=== PATIENT | female | born 1995 | race Caucasian/White ===

== ENCOUNTER 2017-03-31 11:11 | Observation (INO) ==
[2017-03-31] MEDS ORDERED: MORPHINE 2 MG/1 ML SYRINGE IV STA (12:30)
[2017-03-31] MEDS ORDERED: SODIUM CHLORIDE 0.9% 1,000 ML IV STA (12:30)
[2017-03-31] MEDS ORDERED: ONDANSETRON ODT 4 MG TABLET PO STA (12:30)
--- NOTE | 2017-03-31 12:32 | Emergency Department Note ---
Arrival - Arrival Chief Complaint: Nausea/Vomiting/Diarrhea Stated Complaint: vomiting X 4 days ED Nursing Triage Note: Pt c/o nausea, vomiting, MITCHELL, and abd/chest pain. Mode of Arrival: Ambulatory Limitations: No Limitations Source: Patient, RN Notes Reviewed Time Seen by Provider: 03/31/17 11:44 - History of Present Illness HPI Narrative: - History of Present Illness 22-year-old white female presents to ED with: MD Complaint: abdominal pain, nausea, vomiting,, migraine, chest pain Onset (ago): 4 days Fever: no Related symptoms: Cramping in hands, numbness in arms and legs PCP: none PMHx: Migraines Date of Last Menstrual Period: started yesterday Allergies/Adverse Reactions: Allergies Allergy/AdvReac Type Severity Reaction Status Date / Time azithromycin [From Zithromax] Allergy RASH Verified 03/31/17 11:23 Home Medications: Home Medications Medication Instructions Recorded Confirmed Type No Known Home Medications [No 03/31/17 03/31/17 History Known Home Medications] Review of System - Review of System 12 point system: reviewed and no additional remarkable complaints except as stated - Review of System Cardiovascular: Present: as per HPI, chest pain Gastrointestinal: Present: as per HPI, abdominal pain, nausea, vomiting. Absent : melena, hematochezia Medical,Surgical,& Family Hx - Medical History Neurology: History of: Migraine - Social History Smoking Status: Current every day smoker Exam Physical Examination: - General General appearance: alert, in no apparent distress - HEENT Present: atraumatic, normocephalic, normal inspection, PERRL, EOMI, mucous membranes dry - Neck Neck exam: Present: normal inspection, full ROM -Chest Present: symmetrical chest rise, reproducible chest pain - Respiratory Respiratory exam: Present: normal lung sounds bilaterally - Cardiovascular Cardiovascular exam: Present: regular rate, normal rhythm, normal heart sounds - Abdominal Exam Abdominal exam: Present: soft, tenderness: Yes, generalized, mild to moderate, normal bowel sounds. Absent: distention, guarding, - Extremities Exam Extremities exam: Present: normal inspection, full ROM. Absent: pedal edema, joint swelling, calf tenderness - Back Exam Back exam: Present: normal inspection, no CVA tenderness - Neurological Exam Neurological exam: Present: alert, oriented X3, no neuorosensory deficits - Psychiatric Psychiatric exam: Present: normal affect, normal mood - Skin Skin exam: Present: warm, dry, intact Vital Signs: Vital Signs Temperature 98.0 F 03/31/17 20:28 Pulse Rate 89 03/31/17 20:28 Respiratory Rate 20 03/31/17 20:28 Blood Pressure 111/65 03/31/17 20:28 O2 Sat by Pulse Oximetry 98 03/31/17 20:28 - Chest Chest inspection: Present: normal inspection, symmetric chest wall rise, tenderness Course - Consultations Time: 14:00 (Hospitalist service notified of pt presence and status.) Time: 14:15 (Hospitalist service here to evaluate patient. Will admit patient.) Results - Labs CBC & BMP: 03/31/17 12:49 03/31/17 12:49 Lab Results: I have reviewed the patients labs Labs: Laboratory Tests 03/31/17 11:35 Urine Color Yellow Urine Appearance Slightly hazy Urine pH 6.0 Ur Specific [place] 1.029 Urine Protein 100 Urine Glucose (UA) Negative Urine Ketones 5 Urine Blood Negative Urine Nitrate Negative Urine Bilirubin Negative Urine Urobilinogen 2.0 H Urine Leukocytes Negative Urine RBC 3 Urine WBC 6 Ur Squamous Epith Cells Occasional Amorphous Crystals Occasional Urine Bacteria Occasional Urine Mucus Moderate Ur Culture Indicated? Results to follow Urine Test Negative - EKG EKG results: interpreted by JANIYA BLUM - Impressions No STEMI. - Diagnostic Findings Procedure: Abdominal x-ray: report reviewed by me (Negative bowel gas pattern.) Disposition Clinical Impression: Nausea and vomiting, Hypokalemia, Abdominal pain Case discussed with: patient Disposition: Still a Patient Condition: Guarded Time of Disposition: 14:30
[2017-03-31 12:48] LABS: Amorphous Crystals,Urine Occasional /HPF (Few); Bacteria,Urine Occasional /HPF (Few); Bilirubin,Urine Negative (Negative); Blood, Urine Negative (Negative); Glucose,Urine (UA) Negative (Negative); Ketones,Urine 5 mg/dL (Negative); Mucus,Urine Moderate /LPF (Occasional); Nitrite,Urine Negative (Negative); Protein,Urine 100 MG/DL; RBC,Urine 3 /HPF (0-4); Squamous Epithelial Cell,Urine Occasional /HPF (0-10); Urine Specific Gravity 1.029 (1.001-1.035); WBC,Urine 6 /HPF (0-6)
[2017-03-31 12:49] LABS: Apearance,Urine Slightly Hazy (Clear); Urine Color Yellow (Yellow)
[2017-03-31] MEDS ORDERED: MORPHINE 2 MG/1 ML SYRINGE ONE (12:55)
[2017-03-31] MEDS ORDERED: ONDANSETRON ODT 4 MG TABLET PO ONE (12:55)
[2017-03-31 13:06] LABS: Basophils % 0.2 % (0.0-0.8); Hematocrit 45.3 VOL% (35.7-47.0); Hemoglobin 16.2 GM/DL (12.0-16.0); Immature Granulocytes % 0.7 %; Immature Granulocytes Absolute 0.11 #; Lymphocytes # 2.6 10*3/uL (1.4-4.0); Lymphocytes % 15.7 % (21.3-54.2); Mean Corpuscular HGB Conc 35.8 GM/DL (32-36); Mean Corpuscular Hemoglobin 32 PG (27-34); Mean Corpuscular Volume 90.6 FL (87-102); Mean Platelet Volume 11.5 FL (9.6-12.0); Monocytes # 1.5 10*3/uL (0.11-0.8); Monocytes % 9.4 % (1.7-12.7); Platelet Count 276 T/CUMM (130-400); Red Cell Distribution Width 12.3 % (9.3-17.3); White Blood Count 16.2 T/CUMM (4-12)
[2017-03-31 13:28] LABS: Albumin 5.1 G/DL (3.4-5.0); Bilirubin,Total 1.3 MG/DL (0.2-1.0); Calcium 9.8 MG/DL (8.5-10.1); Osmolality,Calculated 281.8 MOS/KG (273-304); Potassium 2.7 MMOL/L (3.5-5.1); Total Protein 8.5 G/DL (6.4-8.3)
--- NOTE | 2017-03-31 13:28 | EKG Report ---
Stationary ECG Study [facility] Test Date: 03/31/2017 12:36:35 PM Pat Name: ALBINA SANON Department: Room: Gender: F Global [employer]: : 1995 Requested by: Julieth Pfeiffer Order Number: [id number] Reading MD: BOUBACAR ARCE Intervals [place] Rate: 67 P: 64 AL: 117 QRS: 94 QRSD: 95 T: 48 QT: 406 QTc: 422 Interpretive Statements SINUS RHYTHM WITH SHORT AL INTERVAL RIGHT AXIS DEVIATION MODERATE T-WAVE ABNORMALITY, CONSIDER INFERIOR ISCHEMIA Electronically Signed On 04-01-17 07:17:32 CDT by BOUBACAR ARCE [email or web address]
--- NOTE | 2017-03-31 13:45 | XRay Report ---
XR abdomen 2V Indication: Nausea, vomiting and diarrhea. Abdomen 2 views: No small bowel dilatation. Normal amount of stool and gas projects over the colon, without dilatation. No evidence of free air. No abnormal calcifications or masses. Impression: Negative bowel gas pattern. PROCEDURE INTERPRETED AT [facility] DEPARTMENT OF RADIOLOGY Final Report Signed by: Jeffrey Gracia M.D.
[2017-03-31] MEDS ORDERED: ACETAMINOPHEN 325 MG TABLET PO PRN ×2 (14:37)
[2017-03-31] MEDS ORDERED: guaiFENesin/DM ER 600-30 MG TABLET PO PRN (14:37)
[2017-03-31] MEDS ORDERED: DOCUSATE SODIUM 100 MG CAPSULE PO PRN (14:37)
[2017-03-31] MEDS ORDERED: PROMETHAZINE 25 MG/1 ML VIAL IM PRN (14:37)
[2017-03-31] MEDS ORDERED: diphenhydrAMINE CAP 25 MG CAPSULE PO PRN (14:37)
[2017-03-31] MEDS ORDERED: SODIUM CHLORIDE 0.9% 1,000 ML IV ONE (14:44)
[2017-03-31] MEDS ORDERED: IBUPROFEN 800 MG TABLET PO PRN (14:46)
--- NOTE | 2017-03-31 14:55 | Hospitalist History & Physical ---
Assessment and Plan - Time spent with patient Time spent with patient: Greater than 30 minutes (1) Nausea and vomiting Status: Acute Assessment and plan: Ms. Penn is a 22-year-old white female with history of migraines admitted by the hospitalist service with 5 day history of nausea and vomiting with hypokalemia and migraines. Patient will be admitted to Dr. Delgado service, given a bolus of normal saline and maintenance fluids with potassium. We will start her on some nausea medicine, and a clear liquid diet. Can advance her diet as she tolerates. She will be given some Motrin as needed for her migraines. Will check an abdominal ultrasound of the right upper quadrant due to her elevated T bili with nausea and vomiting to rule out gallbladder disease. If it is her gallbladder will go ahead and start her on some antibiotics. She is afebrile at this time so we will hold off on antibiotics until results of the ultrasound are back. Recheck labs in the morning. Blood cultures and UA have been ordered. Dr. Solano will see and examine patient and further recommendations to follow. Current Visit: Yes (2) Dehydration Status: Acute Current Visit: Yes (3) Hypokalemia Status: Acute Current Visit: Yes (4) Migraines Status: Acute Current Visit: Yes (5) Right upper quadrant abdominal pain Status: Acute Current Visit: Yes History of Present Illness Chief complaint: Nausea and vomiting 5 days History of present illness: Ms. Mcgraw is a 22 year old female with with history of migraines presenting to [facility] with a 5 day history of nausea and vomiting. Patient states she ate a chicken sandwich at [employer] on Saturday and then several hours later she developed a migraine and then nausea followed by vomiting. Patient states she has vomited 5-10 times a day since Saturday. She can keep down ice chips and applesauce but everything else comes back up. She denies diarrhea, constipation, shortness of breath, or lower extremity edema. She states the migraines have been off and on since the vomiting episodes have started and they are associated with vision changes. She states she usually just takes some ibuprofen and lays in the dark until it goes away. Patient is weak and dizzy and she is complaining of chest pain. Upon exam she has chelosis and dry mucous membranes. She is tender in her right upper quadrant but her lungs are clear and heart regular rate and rhythm with no murmurs heard. She is afebrile vital signs are stable but she does have an elevated white count of 16. Her potassium is low at 2.7 and her BUN is elevated. She does have a total bilirubin elevation of 1.3 with normal AST and ALT. After discussion with Kimi Gonzalez NP in the ED and Dr. Solano the admitting hospitalist, it was agreed patient will be admitted for further evaluation and treatment. Home Medications Medication Instructions Recorded Confirmed Type No Known Home Medications [No 03/31/17 03/31/17 History Known Home Medications] Allergies Allergy/AdvReac Type Severity Reaction Status Date / Time azithromycin [From Zithromax] Allergy RASH Verified 03/31/17 11:23 Medical,Surgical,& Family Hx - Medical History Neurology: History of: Migraine - Surgical History Reproductive Surgeries: Patient denies;: Gynecologic Surgery Orthopedic Surgeries: Patient denies;: Orthopedic Surgery - Family History Family History: Reports;: Family Hypertension - Social History Smoking Status: Current every day smoker Have you smoked in the last 12 months: Yes Frequency of Alcohol Use: Occasionally Type of Drug Use: Marijuana Marital Status: Single Lives With:: Parent Functional capacity: independent ambulation Review of systems: A complete 10 system review of systems was obtained and pertinent positives and negatives per HPI Exam - Constitutional Vitals: Period Temp Pulse Resp BP Sys/Hi Pulse Ox Last 24 Hr 98.3 F 89 20 121/89 96 Exam: Constitutional System: No distress. No tremulousness. Head: Normocephalic, atraumatic. Ears, Nose and Throat System: No evidence of Otitis or Mastoiditis. No epistaxis or discharge dry mucous membranes, chelosis Eyes System: Pupils equal, round, and reactive. Extraocular muscles intact. Neck: Supple, without adenopathy, No jugular venous distention. No thyromegaly, neck mass, or prior surgery apparent. Respiratory System: Chest clear to auscultation. Cardiovascular System: Heart with regular rate and rhythm. No murmur. GI System: Abdomen soft, tender to palpation in right upper quadrant and epigastric region. Normo active bowel sounds present. Musculoskeletal System: limbs with no pedal edema. Full distal pulses. Neurological System: No discernable sensory deficit. No aphasia Psychiatric System: Conversation is rational Results - Labs CBC & BMP: 03/31/17 12:49 03/31/17 12:49 Lab Results: I have reviewed the past 24 hour labs - Impressions Her EKG shows a borderline right axis deviation with a moderate T-wave abnormality Quality Measures - VTE Contraindication to Pharmacological VTE Prophylaxis: Clinical assessment deems Pt at low risk, no prophalaxis needed
[2017-03-31] MEDS ORDERED: PANTOPRAZOLE 40 MG TABLET PO SCH (15:00)
--- NOTE | 2017-03-31 16:07 | XRay Report ---
XR chest 2V Indication: Chest pain. Chest 2 views: No comparison. Heart size and mediastinal contour are normal. There is diffuse mild parabronchial thickening present. No focal infiltrates are shown. Pleural spaces are clear. Bones are intact. Impression: Mild airways disease such as bronchitis or viral syndrome. No focal pneumonia. PROCEDURE INTERPRETED AT [facility] DEPARTMENT OF RADIOLOGY Final Report Signed by: Jeffrey Gracia M.D.
[2017-03-31] MEDS: ONDANSETRON 4 MG/2 ML VIAL IV PRN ×2 (16:35→20:28)
--- NOTE | 2017-03-31 16:54 | Ultrasound Report ---
US gallbladder Indication: Right upper quadrant abdominal pain. ULTRASOUND ABDOMEN, limited Comparison: None Findings: Liver: Unremarkable Gallbladder: Unremarkable Common bile duct: 3 mm Pancreas: Unremarkable Right kidney: 9.7 cm length. No mass, cyst, calcification or obstruction Impression: Negative ultrasound the abdomen. PROCEDURE INTERPRETED AT [facility] DEPARTMENT OF RADIOLOGY Final Report Signed by: Jeffrey Gracia M.D.
[2017-03-31] MEDS: SODIUM CHLOR 0.9% KCL 40 MEQ 40 MEQ/1,000 ML BAG IV SCH (17:36)
[2017-03-31] MEDS: PANTOPRAZOLE 40 MG TABLET PO SCH (21:12)
[2017-03-31] MEDS: MORPHINE 2 MG/1 ML SYRINGE IV PRN (22:48)
[2017-04-01] MEDS: SODIUM CHLOR 0.9% KCL 40 MEQ 40 MEQ/1,000 ML BAG IV SCH ×2 (01:44→09:48)
[2017-04-01 05:16] LABS: Basophils % 0.1 % (0.0-0.8); Eosinophils % 0.2 % (0.00-10.9); Hematocrit 33.1 VOL% (35.7-47.0); Hemoglobin 11.3 GM/DL (12.0-16.0); Immature Granulocytes % 0.6 %; Immature Granulocytes Absolute 0.05 #; Lymphocytes # 3.5 10*3/uL (1.4-4.0); Lymphocytes % 41.7 % (21.3-54.2); Mean Corpuscular HGB Conc 34.1 GM/DL (32-36); Mean Corpuscular Hemoglobin 33 PG (27-34); Mean Corpuscular Volume 96.5 FL (87-102); Mean Platelet Volume 11.9 FL (9.6-12.0); Monocytes # 0.7 10*3/uL (0.11-0.8); Monocytes % 8.8 % (1.7-12.7); Neutrophils % 48.6 % (38.7-73.9); Platelet Count 149 T/CUMM (130-400); Red Blood Count 3.43 MC/CUMM (3.8-5.5); Red Cell Distribution Width 12.2 % (9.3-17.3); White Blood Count 8.3 T/CUMM (4-12)
[2017-04-01 05:47] LABS: Albumin 3.1 G/DL (3.4-5.0); Calcium 7.7 MG/DL (8.5-10.1); Magnesium 2.4 MG/DL (1.8-2.4); Potassium 3.9 MMOL/L (3.5-5.1); Total Protein 5.2 G/DL (6.4-8.3)
[2017-04-01] MEDS: ONDANSETRON 4 MG/2 ML VIAL IV PRN (08:50)
[2017-04-01] MEDS: PANTOPRAZOLE 40 MG TABLET PO SCH (08:50)
[2017-04-01] MEDS: MORPHINE 2 MG/1 ML SYRINGE IV PRN (13:15)
--- NOTE | 2017-04-01 14:03 | Discharge Summary ---
Hospital Course - Hospital Course Hospital Course: Ms. Penn is a 22-year-old white female with history of migraines who was admitted on the above admit date with a 5 day history of nausea and vomiting. She was found to be moderately dehydrated with a significant hypokalemia, JOSE and elevated T bili. She is also found to have an elevated white blood cell count. She was admitted and treated for moderate dehydration secondary to intractable nausea and vomiting that was exacerbated by a gastroenteritis and migraine headaches. We replaced her potassium IV with concomitant IV fluids. The following day her electrolytes had all corrected including her white blood cell count. She was not initiated on antibiotics. Right upper quadrant ULTRASOUND was obtained due to an elevated T bili. This returned normal. We treated her with as needed Zofran and for nausea and ibuprofen for headache both of which seem to provide additional relief. She tolerated a breakfast as well as lunch that was advanced to soft without any difficulty. No further episodes of nausea nor vomiting. She did have a mild headache but stated that the ibuprofen that was ordered did relieve that headache. Therefore she has reached maximal benefit of this hospitalization and she is ready for discharge home. Of note, patient states that she has moderate amount of anxiety for which she would like to be seen in an outpatient follow-up with a primary care physician. Diagnosis - Discharge Diagnosis (1) Nausea and vomiting Status: Resolved (2) Dehydration Status: Resolved (3) Hypokalemia Status: Resolved (4) Migraines Status: Chronic (5) Right upper quadrant abdominal pain Status: Resolved Discharge Plan - Discharge Data Disposition: Disch To Home/Self Care Condition at Discharge: Stable Discharge Diet: advance to your usual diet Activity: resume usual activities as tolerated Hygiene: no restrictions Weight Bearing at Discharge: full weight bearing Driving: no restrictions Contact your physician if you experience:: Nausea/Vomiting - Discharge Medications New Ondansetron Tab [Zofran Tab] 4 mg PO Q6H PRN #20 tablet PRN Reason: Nausea/Vomiting Ibuprofen Tab [Motrin Tab] 800 mg PO Q8H PRN #30 tablet PRN Reason: migraine - Follow Up or Referral - Forms/Instructions Exam - Constitutional Vitals: Period Temp Pulse Resp BP Sys/Hi Pulse Ox Last 24 Hr 97.4 F-98.5 F 53-89 18-22 101-117/56-74 97-100 Exam: General: No acute distress. No tremulousness. Head: Normocephalic, atraumatic. Eyes System: Pupils equal, round, and reactive. Extraocular muscles intact. Respiratory System: Chest clear to auscultation. Cardiovascular System: Heart with regular rate and rhythm. No murmur. GI System: Abdomen soft, non-tender to palpation. Normo active bowel sounds present. Neurological System: Grossly intact without sensory deficits. No aphasia Psychiatric System: Conversation is rational Discharge Results Procedures and tests throughout hospitalization: Pending Orders 03/31/17 Urine Culture Routine 03/31/17 21:25 Blood Culture Stat Labs on day of discharge: Labs from last 24 hours 04/01/17 04/01/17 04:15 04:15 WBC 8.3 D RBC 3.43 L D Hgb 11.3 L D Hct 33.1 L MCV 96.5 MCH 33 MCHC 34.1 RDW 12.2 Plt Count 149 D MPV 11.9 Neut % (Auto) 48.6 Lymph % (Auto) 41.7 [place] % (Auto) 8.8 Eos % (Auto) 0.2 Baso % (Auto) 0.1 Neut # (Auto) 4.0 Lymph # (Auto) 3.5 [place] # (Auto) 0.7 Eos # (Auto) 0.0 Baso # (Auto) 0.0 Immature Gran % 0.6 Nucleated RBC % 0.0 Immature Gran # 0.05 Nucleated RBCs # 0.00 Sodium 143 Potassium 3.9 Chloride 107 Carbon Dioxide 27 Anion Gap 12.9 BUN 18 D Creatinine 0.60 GFR Calculation 97 BUN/Creatinine Ratio 30.00 H Glucose 79 Calculated Osmolality 285.0 Calcium 7.7 L D Magnesium 2.4 Total Bilirubin 1.00 AST 14 ALT 14 Alkaline Phosphatase 39 L Total Protein 5.2 L Albumin 3.1 L Globulin 2.1 L Albumin/Globulin Ratio 1.4 Preliminary micro results at discharge 03/31/17 Unknown Urine Culture - Preliminary Urine,Voided No Growth at 12 hours. DS: Provider Date of admission: 03/31/17 14:08 Primary care physician: . No PCP Attending physician on admission: Stephany Solano MD Consults: 03/31/17 15:40 Consult to Dietitian [CONS] Routine Reason for Dietitian: Dietary Consult 04/01/17 13:07 Consult to Physician [CONS] Routine Comment: Consulting Provider: Pat,Bill III. Person Notified: pat Date Notified: 04/01/17 Time Notified: 13:07 Discharging clinician: Stephany Solano MD Expected date of discharge: 04/01/17
[2017-04-01 14:10] VITALS: BP 103/61
--- NOTE | 2017-04-01 14:21 | General Surgery Consult Note ---
Assessment and Plan - Time spent with patient Time spent with patient: Greater than 30 minutes (1) Abdominal pain Status: Acute Assessment and plan: The etiology of her pain is unclear. She has had 2 separate episodes by normal interval. According to her these have coincided with her menstrual period. I do not have a definite explanation for this and I would not expect a SOCIAL SERVICES AIDE source such as endometriosis to cause so much nausea and vomiting. I think it may be helpful to get a GI evaluation. I will consult GI. She does not appear to have an acute surgical abdomen. I will try to get a copy of her CT scan that was done at [place]. If this was normal recently it is probably not worthwhile to repeat it. Current Visit: Yes Qualifiers: Abdominal location: lower abdomen, unspecified Qualified Code(s): R10.30 - Lower abdominal pain, unspecified History of Present Illness Chief complaint: Abdominal pain History of present illness: Ms. Mcgraw is a 22 year old female Who for about 5 days has had lower abdominal pain which is poorly localized. It is moderate in severity. It is been associated with extensive nausea and vomiting. When she presented she reported that she had a right upper quadrant abdominal pain however she states to me that all of her pain has been in the lower midline. She had a similar episode back about a month ago and went to the [facility] emergency room a couple of times over a period of a week and states that it spontaneously resolved. She states that she had an abdominal CT at that time and they did not tell her that anything was abnormal on the CT scan. She states that this coincided with her menstrual period before and she is started her menstrual period about a week ago this time as well. She does not know of any aggravating or alleviating factors. She is unaware of fever or chills. She has not had diarrhea. She had a right upper quadrant ultrasound that showed a normal gallbladder. Home Medications Medication Instructions Recorded Confirmed Type Ibuprofen Tab [Motrin Tab] 800 mg PO Q8H PRN #30 tablet 04/01/17 Rx Ondansetron Tab [Zofran Tab] 4 mg PO Q6H PRN #20 tablet 04/01/17 Rx Allergies Allergy/AdvReac Type Severity Reaction Status Date / Time azithromycin [From Zithromax] Allergy RASH Verified 03/31/17 11:23 Medical,Surgical,& Family Hx - Medical History Psychological: History of: ADHD Neurology: History of: Migraine Gastrointestinal: History of: GI Problems (constipation) - Surgical History Reproductive Surgeries: Patient denies;: Gynecologic Surgery Orthopedic Surgeries: Patient denies;: Orthopedic Surgery - Family History Family History: Reports;: Family Hypertension - Social History Smoking Status: Current every day smoker Frequency of Alcohol Use: Occasionally Type of Drug Use: Marijuana - Constitutional Constitutional: Present: anorexia, weight loss. Absent: chills, fever(s) - Cardiovascular Cardiovascular: Absent: chest pain at rest, chest pain with activity - Respiratory Respiratory: Absent: cough, dyspnea, hemoptysis, dyspnea on exertion - Gastrointestinal Gastrointestinal: Present: abdominal pain, nausea, vomiting. Absent: bloating, cramping, hematemesis, hematochezia, jaundice - Genitourinary Genitourinary: Absent: hematuria, vaginal discharge - Neurological Neurological: Absent: focal weakness, syncope - Endocrine Endocrine: Absent: polyuria Hematologic/Lymphatic: Absent: easy bruising Exam - Constitutional Vitals: Period Temp Pulse Resp BP Sys/Hi Pulse Ox Last 24 Hr 97.4 F-98.5 F 52-89 18-22 101-117/56-74 97-100 General appearance: no acute distress - Head Head exam: Present: normocephalic - Eye Eye exam: Absent: scleral icterus - ENT Mouth exam: Present: normal voice - Neck Neck exam: Present: trachea midline. Absent: lymphadenopathy, tenderness, thyromegaly - Respiratory Respiratory exam: Present: clear to auscultation bilaterally. Absent: accessory muscle use - Cardiovascular Cardiovascular exam: Present: RRR - GI/Abdominal GI/Abdominal exam: Present: normal bowel sounds, soft. Absent: distended, guarding, mass, Jasmine's sign, tenderness, rebound - Back Exam Back exam: Present: normal inspection - Neurological Exam Neurological exam: Present: alert, oriented X3. Absent: motor sensory deficit Quality Measures - VTE Contraindication to Pharmacological VTE Prophylaxis: Clinical assessment deems Pt at low risk, no prophalaxis needed Results - Labs CBC & BMP: 04/01/17 04:15 04/01/17 04:15 Lab Results: I have reviewed the past 24 hour labs - Diagnostic Findings Procedure: Ultrasound: report reviewed by me
== END 2017-04-01 15:50 | disposition home or self-care (01) ==
LOC: N.EDINP 11:11 → N.ED 11:11 → N.2E 15:30
PROVIDERS: ADMIT Internal Medicine; ATTEND Internal Medicine

== ENCOUNTER 2017-05-07 15:33 | Inpatient (IN) ==
[2017-05-07] MEDS ORDERED: ONDANSETRON 4 MG/2 ML VIAL IV STA (16:39)
[2017-05-07] MEDS ORDERED: SODIUM CHLORIDE 0.9% 1,000 ML IV STA (16:39)
[2017-05-07 16:42] LABS: Basophils % 0.1 % (0.0-0.8); Hematocrit 40.7 VOL% (35.7-47.0); Hemoglobin 14.1 GM/DL (12.0-16.0); Immature Granulocytes % 0.4 %; Immature Granulocytes Absolute 0.06 #; Lymphocytes # 1.6 10*3/uL (1.4-4.0); Lymphocytes % 11.4 % (21.3-54.2); Mean Corpuscular HGB Conc 34.6 GM/DL (32-36); Mean Corpuscular Hemoglobin 33 PG (27-34); Mean Platelet Volume 11.5 FL (9.6-12.0); Monocytes # 0.7 10*3/uL (0.11-0.8); Monocytes % 4.7 % (1.7-12.7); Neutrophils % 83.4 % (38.7-73.9); Platelet Count 216 T/CUMM (130-400); Red Blood Count 4.33 MC/CUMM (3.8-5.5); Red Cell Distribution Width 12.6 % (9.3-17.3); White Blood Count 14.3 T/CUMM (4-12)
[2017-05-07] MEDS ORDERED: ONDANSETRON 4 MG/2 ML VIAL ONE (16:45)
[2017-05-07 17:14] LABS: Albumin 4.3 G/DL (3.4-5.0); Bilirubin,Total 0.9 MG/DL (0.2-1.0); Calcium 9.5 MG/DL (8.5-10.1); Magnesium 2.6 MG/DL (1.8-2.4); Potassium 2.9 MMOL/L (3.5-5.1); Total Protein 8.1 G/DL (6.4-8.3)
[2017-05-07] MEDS ORDERED: POTASSIUM CHLORIDE 20 MEQ TABLET PO STA (17:19)
[2017-05-07] MEDS ORDERED: POTASSIUM CHLORIDE 20 MEQ TABLET PO ONE ×2 (17:26→17:30)
--- NOTE | 2017-05-07 17:40 | CT Report ---
Referring physician: Jose Pozo EXAM: CT abdomen and pelvis with contrast DATE: 05/07/2017 COMPARISON: None REASON: Generalized abdomen pain with nausea and vomiting TECHNIQUE: Axial images of the abdomen and pelvis were obtained after administration of 80 cc of Omnipaque 350 IV contrast. Coronal and sagittal reformatted images were also provided. Total DLP is 292.30 mGy*cm. FINDINGS: The visualized lower lung zones are clear. The liver is normal in size with no masses, dilated ducts, or calcified gallstones. The spleen, pancreas, adrenal glands, and kidneys have an unremarkable appearance. No definite renal or ureteral calculi are identified. The aorta is normal in size with no adjacent adenopathy. No significant dilatation of the small bowel. Limited evaluation of the bowel without oral contrast. No evidence definite diverticulitis, appendicitis, or free air. Poor definition of the fascial planes in the pelvis which makes it difficult to exclude very minimal free fluid. Small cysts/follicles in the ovaries. Decompressed urinary bladder. No acute osseous findings. IMPRESSION: Limited evaluation of bowel without oral contrast but no evidence of definite appendicitis. Poor definition of fascial planes the pelvis which makes it difficult to exclude nonspecific minimal free fluid with probable small cysts/follicles in the ovaries. The CT exam was performed using one or more of the following dose reduction techniques: Automated exposure control and adjustment of the mA and/or kV according to patient size. PROCEDURE INTERPRETED AT [facility] DEPARTMENT OF RADIOLOGY Final Report Signed by: Dr. Cait Martin
--- NOTE | 2017-05-07 17:52 | Emergency Department Note ---
Pee Samayoa Brooke, am scribing for, and in the presence of, Jose Pozo MD 16:44. Sánchez Samayoa Phillip K, MD, personally performed the services described in this documentation, ascribed by Donna Glasgow in my presence, and it is both accurate and complete [id number] . Arrival - Arrival Chief Complaint: Abdominal / Flank Pain Stated Complaint: nausea,chest pains,stomach cramps ED Nursing Triage Note: pt ambulatory to triage with c/o having abd pain with n/ v and loss of appetite. pt states onset was back in september and states all of this always happens when her period comes on. states period onset saturday. Mode of Arrival: Ambulatory Limitations: No Limitations Source: Patient, Family (Aunt), RN Notes Reviewed Time Seen by Provider: 05/07/17 16:19 - History of Present Illness HPI Narrative: Patient is a 22 year old female who presents to the ED with c/o lower abdominal pain, nausea, and vomiting. Patient has been having these symptoms since September and only during her menstrual cycle. She says this episode started on Saturday. She describes the lower abdominal pain as "someone beating me with a hammer." She was in the ED, yesterday, with same complaint. Her WBC was elevated , urine and test was negative. Patient saw Dr. Ralph, last Saturday, and had an ultrasound done and was told that she had ovarian cysts. She has never had a laparoscope done or been told that she might have endometriosis. Patient does not normally check her temperature during these episodes but her temperature during triage was 99.3 and she says she "feels hot." Patient says she has had about a 30 pound weight loss since September and she has not been trying to loose weight. She thinks she had a CT scan done in February, at [facility]. She has no medical problems. Patient still has her appendix. Onset (ago): day(s) (3) Date of Last Menstrual Period: 05/05/2017 Allergies/Adverse Reactions: Allergies Allergy/AdvReac Type Severity Reaction Status Date / Time azithromycin [From Zithromax] Allergy RASH Verified 05/07/17 15:54 Home Medications: Home Medications Medication Instructions Recorded Confirmed Type Ethinyl Estrad/Norges 0.03-0.3 [Lo 1 tablet PO DAILY 05/07/17 05/07/17 History Ovral 28] Ondansetron Tab [Zofran Tab] 4 mg PO Q4-6H PRN 05/07/17 05/07/17 History Review of System - Review of System 12 point system: reviewed and no additional remarkable complaints except as stated - Review of System Constitutional: Absent: fever Respiratory: Absent: respiratory distress Gastrointestinal: Present: abdominal pain (lower), nausea, vomiting Skin: Absent: rash Medical,Surgical,& Family Hx - Medical History Psychological: History of: ADHD Neurology: History of: Migraine Gastrointestinal: History of: GI Problems (constipation) Reproductive: History of: Ovarian Cysts - Surgical History Reproductive Surgeries: Patient denies;: Gynecologic Surgery Orthopedic Surgeries: Patient denies;: Orthopedic Surgery - Family History Family History: Reports;: Family Hypertension - Social History Smoking Status: Current every day smoker Frequency of Alcohol Use: None Type of Drug Use: None Exam Vital Signs: Vital Signs Temperature 99.3 F 05/07/17 15:55 Pulse Rate 73 05/07/17 15:55 Respiratory Rate 17 05/07/17 15:55 Blood Pressure 126/79 05/07/17 15:55 O2 Sat by Pulse Oximetry 99 05/07/17 15:47 - General General appearance: alert, in no apparent distress - Head Head exam: Present: atraumatic, normocephalic - Eye Eye exam: Present: normal appearance, PERRL, EOMI - ENT ENT exam: Present: normal exam - Neck Neck exam: Present: normal inspection - Chest Chest inspection: Present: normal inspection, symmetric chest wall rise - Respiratory Respiratory exam: Present: normal lung sounds bilaterally - Cardiovascular Cardiovascular exam: Present: regular rate, normal rhythm, normal heart sounds - Abdominal Exam Abdominal exam: Present: soft, tenderness (diffuse tenderness with direct palpation but worse in the LLQ.), rebound, diminished bowel sounds. Absent: distention - Extremities Exam Extremities exam: Present: normal inspection - Back Exam Back exam: Present: normal inspection - Neurological Exam Neurological exam: Present: alert, oriented X3 - Psychiatric Psychiatric exam: Present: normal affect, normal mood - Skin Skin exam: Present: warm, dry, intact, normal color Course Course Narrative: Patient discussed with the hospitalist. 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 I feel this patient probably needs a laparoscope. She may have endometriosis. Results - Labs CBC & BMP: 07/25/17 16:34 05/07/17 16:34 Lab Results: I have reviewed the patients labs Labs: Laboratory Tests 05/07/17 16:34 WBC 14.3 H RBC 4.33 Hgb 14.1 Hct 40.7 MCV 94.0 MCH 33 MCHC 34.6 RDW 12.6 Plt Count 216 D MPV 11.5 Neut % (Auto) 83.4 H Lymph % (Auto) 11.4 L Gray % (Auto) 4.7 Eos % (Auto) 0.0 Baso % (Auto) 0.1 Neut # (Auto) 12.0 H Lymph # (Auto) 1.6 Gray # (Auto) 0.7 Eos # (Auto) 0.0 Baso # (Auto) 0.0 Immature Gran % 0.4 Nucleated RBC % 0.0 Immature Gran # 0.06 Nucleated RBCs # 0.00 Laboratory Tests 05/07/17 16:34 Sodium 143 Potassium 2.9 L Chloride 104 Carbon Dioxide 30 Anion Gap 11.9 BUN 18 Creatinine 0.70 GFR Calculation 88 BUN/Creatinine Ratio 25.00 H Glucose 91 Calculated Osmolality 286.0 Calcium 9.5 Magnesium 2.6 H Total Bilirubin 0.90 AST 20 ALT 18 Alkaline Phosphatase 63 Total Protein 8.1 Albumin 4.3 Globulin 3.8 H Albumin/Globulin Ratio 1.1 Lipase 154.0 - Diagnostic Findings Procedure: CT Abdomen and Pelvis: report reviewed by me (No appendicitis, possible small ovarian cyst and possible free fluid that is minimal) Disposition Clinical Impression: Nausea and vomiting, Abdominal pain, Weight loss, Hypokalemia, Possible endometriosis Case discussed with: patient, patient's family Disposition: Still a Patient Condition: Guarded Additional Instructions: Admit to the hospitalist and consult Dr. Lewis.
[2017-05-07] MEDS ORDERED: MAGNESIUM HYDROXIDE SUSP 30 ML UDCUP PO PRN (18:40)
[2017-05-07] MEDS ORDERED: ACETAMINOPHEN 325 MG TABLET PO PRN (18:40)
[2017-05-07] MEDS ORDERED: KETOROLAC 30 MG/1 ML VIAL IV STA (18:44)
[2017-05-07] MEDS ORDERED: KETOROLAC 30 MG/1 ML VIAL ONE (18:45)
[2017-05-07] MEDS ORDERED: BISACODYL 10 MG SUPP RECTAL PRN (19:42)
[2017-05-07] MEDS: ONDANSETRON 4 MG/2 ML VIAL IV PRN (22:26)
[2017-05-07] MEDS: POTASSIUM CHLORIDE INJ 30 MEQ in LACTATED RINGERS 1,000 ML IV SCH (22:26)
[2017-05-07] MEDS: DOCUSATE SODIUM 100 MG CAPSULE PO SCH (22:49)
[2017-05-07] MEDS: IBUPROFEN 800 MG TABLET PO PRN (23:30)
[2017-05-08] MEDS: ONDANSETRON 4 MG/2 ML VIAL IV PRN ×3 (06:15→19:55)
[2017-05-08] MEDS: POTASSIUM CHLORIDE INJ 30 MEQ in LACTATED RINGERS 1,000 ML IV SCH ×3 (06:18→22:13)
--- NOTE | 2017-05-08 08:55 | OB/GYN History & Physical ---
History of Present Illness Chief complaint: Nausea vomiting pelvic pain dysmenorrhea History of present illness: Ms. Mcgraw is a 22 year old female With history of chronic pelvic pain and worsening dysmenorrhea and nausea and vomiting leading to hypokalemia admitted for IV fluid therapy and correction of her low potassium. Patient states that every time she has. She has debilitating pain requiring her to come the emergency room. She states she has been seeing Dr. Ralph's office had an ultrasound performed that showed some cyst but she is not quite sure how many or what size. She states she was placed on control pills for treatment. Based on the patient's symptoms and history suspect that she may have pelvic endometriosis and talked about possible treatment options. She states she has had weight loss and feel that switching her to Depo-Provera might benefit in terms of suppressing her symptoms and also helping her to regain weight. She has no significant response from this and will consult GI and possibly patient may need diagnostic laparoscopy to confirm diagnosis Home Medications Medication Instructions Recorded Confirmed Type Ethinyl Estrad/Norges 0.03-0.3 [Lo 1 tablet PO DAILY 05/07/17 05/07/17 History Ovral 28] Ondansetron Tab [Zofran Tab] 4 mg PO Q4-6H PRN 05/07/17 05/07/17 History Allergies Allergy/AdvReac Type Severity Reaction Status Date / Time azithromycin [From Zithromax] Allergy RASH Verified 05/07/17 15:54 - Gastrointestinal Gastrointestinal: Present: abdominal pain Medical,Surgical,& Family Hx - Medical History Psychological: History of: ADHD No history of: Anxiety Disorders, Behavior Problems, Bipolar Disorder, Depression, Previous Suicide Attempt, Psychiatric/Substance Abuse Tx, Schizophrenia, Violent Behavior, Psychiatric Problems Neurology: History of: Migraine No history of: Brain Aneurysm, Cerebral Hemorrhage, Cerebrovascular Accident , Cerebral Palsy, Dementia, Multiple Sclerosis, Parkinson's Disease, Peripheral Neuropathy, Seizures, TIA, Vertigo, Neurologocal Cancer Rheumatology: No history of;: Psoriasis, Sjogrens, Systemic Lupus Erythematosus Gastrointestinal: History of: GI Problems (constipation) Musculoskeletal: No history of: Amputation Hematology: No history of: Blood Transfusion Reaction Reproductive: History of: Ovarian Cysts No history of: Abnormal Pap Smear, Breast Cancer, Endometriosis, Ectopic , Complication, Sexually Transmitted Disorders, Reproductive Cancer, Reproductive Problems Other: No history of: Anesthesia Reactions, Anaphylaxis, Cancer, Eczema, HIV, Malignant Hyperthermia, MRSA, Vancomycin-Resistant Enterococci, Skin Problems - Surgical History Cardiac Surgeries: Patient Denies: Cardiac Catheterization Thoracic Surgeries: Patient denies;: Organ Transplant, Lobectomy Neurologic Surgeries: Patient denies: Brain Aneurysm, Cerebral Hemorrhage, Neurologic Surgery HEENT Surgeries: Patient denies: Eye Surgery, Tonsilectomy & Adenoidectomy Abdominal Surgeries: Patient denies: Abdominal Surgery, Appendectomy, Cholecystectomy, Colonoscopy , Gastric Bypass Surgery, EGD, Hernia Repair Reproductive Surgeries: Patient denies;: Genitourinary Surgery, Gynecologic Surgery Orthopedic Surgeries: Patient denies;: Implanted Devices, Orthopedic Surgery, Spinal Surgery, Total Hip Replacement, Total Knee Replacement - Family History Family History: Reports;: Family Hypertension Denies;: Family Anesthesia Reaction, Family Cancer, Family Diabetes, Family Heart Disease, Family Hematology, Family Psychiatric Problems, Family Stroke, Additional Family History - Social History Smoking Status: Current every day smoker Frequency of Alcohol Use: None 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 - Constitutional Vitals: Vital Signs Temp Pulse Pulse Resp BP BP Pulse Ox 05/08/17 07:03 98.0 F 05/08/17 04:04 98.0 F 76 116/81 05/08/17 03:30 20 05/08/17 01:11 05/08/17 00:20 98.3 F 72 22 121/75 05/08/17 00:00 98.3 F 72 22 121/75 05/07/17 20:30 98.1 F 58 L 20 127/80 05/07/17 20:00 86 20 124/84 100 05/07/17 18:30 62 17 127/85 05/07/17 18:00 66 26 H 132/90 05/07/17 17:30 77 22 122/88 05/07/17 17:13 85 26 H 126/89 100 05/07/17 16:30 65 19 115/88 05/07/17 16:15 68 20 131/87 05/07/17 15:55 99.3 F 73 17 126/79 05/07/17 15:47 99.3 F 73 17 126/79 99 Pulse Ox 05/08/17 07:03 05/08/17 04:04 100 05/08/17 03:30 05/08/17 01:11 98 05/08/17 00:20 98 05/08/17 00:00 98 05/07/17 20:30 100 05/07/17 20:00 05/07/17 18:30 05/07/17 18:00 05/07/17 17:30 05/07/17 17:13 05/07/17 16:30 05/07/17 16:15 05/07/17 15:55 05/07/17 15:47 Results - Labs CBC & BMP: 05/07/17 16:34 05/07/17 16:34
[2017-05-08 09:50] LABS: Basophils % 0.2 % (0.0-0.8); Mean Corpuscular Hemoglobin 33 PG (27-34); Red Blood Count 3.62 MC/CUMM (3.8-5.5); Red Cell Distribution Width 12.5 % (9.3-17.3)
[2017-05-08 09:56] LABS: Hematocrit 34.8 VOL% (35.7-47.0); Immature Granulocytes % 0.6 %; Immature Granulocytes Absolute 0.07 #; Lymphocytes # 2.2 10*3/uL (1.4-4.0); Lymphocytes % 18.2 % (21.3-54.2); Mean Corpuscular HGB Conc 33.9 GM/DL (32-36); Mean Corpuscular Volume 96.1 FL (87-102); Mean Platelet Volume 11.7 FL (9.6-12.0); Monocytes # 0.8 10*3/uL (0.11-0.8); Monocytes % 6.3 % (1.7-12.7); Neutrophils % 74.7 % (38.7-73.9); Platelet Count 195 T/CUMM (130-400)
[2017-05-08 10:02] LABS: Hemoglobin 11.8 GM/DL (12.0-16.0)
[2017-05-08] MEDS: DOCUSATE SODIUM 100 MG CAPSULE PO SCH (10:07)
[2017-05-08] MEDS: PANTOPRAZOLE 40 MG TABLET PO SCH (10:08)
[2017-05-08 10:15] LABS: Calcium 8.4 MG/DL (8.5-10.1); Magnesium 2.3 MG/DL (1.8-2.4); Osmolality,Calculated 280.4 MOS/KG (273-304); Potassium 3.7 MMOL/L (3.5-5.1)
[2017-05-08] MEDS: IBUPROFEN 800 MG TABLET PO PRN (10:18)
[2017-05-08 11:59] LABS: HIV Antigen/Antibody Result Nonreactive (Nonreactive)
--- NOTE | 2017-05-08 12:07 | Hospitalist Consult Note ---
Assessment and Plan (1) Nausea and vomiting Status: Resolved Assessment and plan: This is resolved on anti-emetics now. Patient is suspected to have endometriosis. She has been given Depakote shot. Gynecology is treating and following that Current Visit: No (2) Hypokalemia Status: Acute Assessment and plan: Patient has had enough supplementation with good oral intake the should be maintained. Going to control the vomiting and x-ray should be normal. There is much for internal medicine to fall at this time. Further electrolytes are normal we will sign off Current Visit: No (3) Abdominal pain Status: Acute Assessment and plan: Patient is thought to have endometriosis and is on treatment by gynecology. Current Visit: No Qualifiers: Abdominal location: lower abdomen, unspecified Qualified Code(s): R10.30 - Lower abdominal pain, unspecified History of Present Illness - Consult Narrative Reason for consult: Electrolyte disturbance History of present illness: Ms. Mcgraw is a 22 year old female Been consulted to internal medicine (hospital medicine) for hypokalemia and electrolyte abnormalities. Patient has intractable vomiting at the time of her menses was associated with abdominal pain. Reportedly this been going on since October. Patient has lost significant amount of weight she says. She does admit to the hospital by gynecology. There is suspicion of possibility of endometriosis and patient has been given Depo-Medrol tolerated. Electrolyte abnormalities of concern is a potassium of 2.9 at admission sodium was 143 calcium of 9.5 with albumin of 4.3. There is no liver abnormalities. Lipase was 154 with no suggestion of pancreatitis. Patient's anion gap is 11.9 with a bicarb of 30. Creatinine is 0.7 and a BUN of 18. CC: Carlos Beaulieu - Home Medications and Allergies Home Medications: Home Medications Medication Instructions Recorded Confirmed Type Ethinyl Estrad/Norges 0.03-0.3 [Lo 1 tablet PO DAILY 05/07/17 05/07/17 History Ovral 28] Ondansetron Tab [Zofran Tab] 4 mg PO Q4-6H PRN 05/07/17 05/07/17 History Allergies/Adverse Reactions: Allergies Allergy/AdvReac Type Severity Reaction Status Date / Time azithromycin [From Zithromax] Allergy RASH Verified 05/07/17 15:54 Medical,Surgical,& Family Hx - Medical History Psychological: History of: ADHD No history of: Anxiety Disorders, Behavior Problems, Bipolar Disorder, Depression, Previous Suicide Attempt, Psychiatric/Substance Abuse Tx, Schizophrenia, Violent Behavior, Psychiatric Problems Neurology: History of: Migraine No history of: Brain Aneurysm, Cerebral Hemorrhage, Cerebrovascular Accident , Cerebral Palsy, Dementia, Multiple Sclerosis, Parkinson's Disease, Peripheral Neuropathy, Seizures, TIA, Vertigo, Neurologocal Cancer Rheumatology: No history of;: Psoriasis, Sjogrens, Systemic Lupus Erythematosus Gastrointestinal: History of: GI Problems (constipation) Musculoskeletal: No history of: Amputation Hematology: No history of: Blood Transfusion Reaction Reproductive: History of: Ovarian Cysts No history of: Abnormal Pap Smear, Breast Cancer, Endometriosis, Ectopic , Complication, Sexually Transmitted Disorders, Reproductive Cancer, Reproductive Problems Other: No history of: Anesthesia Reactions, Anaphylaxis, Cancer, Eczema, HIV, Malignant Hyperthermia, MRSA, Vancomycin-Resistant Enterococci, Skin Problems - Surgical History Cardiac Surgeries: Patient Denies: Cardiac Catheterization Thoracic Surgeries: Patient denies;: Organ Transplant, Lobectomy Neurologic Surgeries: Patient denies: Brain Aneurysm, Cerebral Hemorrhage, Neurologic Surgery HEENT Surgeries: Patient denies: Eye Surgery, Tonsilectomy & Adenoidectomy Abdominal Surgeries: Patient denies: Abdominal Surgery, Appendectomy, Cholecystectomy, Colonoscopy , Gastric Bypass Surgery, EGD, Hernia Repair Reproductive Surgeries: Patient denies;: Genitourinary Surgery, Gynecologic Surgery Orthopedic Surgeries: Patient denies;: Implanted Devices, Orthopedic Surgery, Spinal Surgery, Total Hip Replacement, Total Knee Replacement - Family History Family History: Reports;: Family Hypertension Denies;: Family Anesthesia Reaction, Family Cancer, Family Diabetes, Family Heart Disease, Family Hematology, Family Psychiatric Problems, Family Stroke, Additional Family History - Social History Smoking Status: Current every day smoker Frequency of Alcohol Use: None Type of Drug Use: None Exam - Constitutional Vitals: Period Temp Pulse Resp BP Sys/Hi Pulse Ox Last 24 Hr 98.0 F-99.3 F 58-86 17-26 115-132/75-90 98-100 General appearance: under weight - Head Head exam: Present: normocephalic, atraumatic - Eye Eye exam: Present: EOMI, other (Anicteric sclera no conjunctival petechia no scleral pallor) Pupils: Present: SARA - ENT ENT exam: Present: normal exam - Neck Neck exam: Present: normal inspection - Respiratory Respiratory exam: Present: clear to auscultation bilaterally - Cardiovascular Cardiovascular exam: Present: regular rate and rhythm - GI/Abdominal GI/Abdominal exam: Present: normal bowel sounds, soft, other (She has had diffuse tenderness more so in the right and left flank. There is no masses felt in this area.) - Extremities Exam Extremities exam: Present: full ROM, other (No edema no cyanosis good muscle tone) - Back Exam Back exam: Present: normal inspection - Neurological Exam Neurological exam: Present: alert, oriented X3, CN II-XII intact - Psychiatric Psychiatric exam: Present: normal affect, normal mood - Skin Skin exam: Present: normal color, warm, dry Results - Labs CBC & BMP: 05/08/17 09:30 05/08/17 09:30 Lab Results: I have reviewed the past 24 hour labs (Noticed that on repeat chemistry done this morning after supplementation of potassium was back up to 3.7 her electrolytes are now normal.)
--- NOTE | 2017-05-08 18:40 | OB/GYN Progress Note ---
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
[2017-05-09] MEDS: DOCUSATE SODIUM 100 MG CAPSULE PO SCH ×2 (01:17→08:58)
[2017-05-09] MEDS: ONDANSETRON 4 MG/2 ML VIAL IV PRN (05:06)
[2017-05-09] MEDS: POTASSIUM CHLORIDE INJ 30 MEQ in LACTATED RINGERS 1,000 ML IV SCH (06:26)
[2017-05-09 07:38] VITALS: BP 109/60
[2017-05-09] MEDS: PANTOPRAZOLE 40 MG TABLET PO SCH (08:58)
--- NOTE | 2017-05-09 09:09 | Discharge Summary ---
Hospital Course - Hospital Course Hospital Course: Patient after admission did well she had resolution of her hypokalemia and improvement of her symptoms after I am Provera. Will follow up as an outpatient. Discharge Plan - Discharge Data Disposition: Disch To Home/Self Care Condition at Discharge: Stable Discharge Diet: regular diet Activity: resume usual activities as tolerated Hygiene: no restrictions Weight Bearing at Discharge: full weight bearing Driving: no restrictions Contact your physician if you experience:: pain uncontrolled by pain medications - Discharge Medications New HYDROcodone/ACETAMIN 5-325 [Garland 5-325] 1 tablet PO Q4H PRN #20 tablet PRN Reason: Pain Moderate (4-7) Ibuprofen Tab [Motrin Tab] 800 mg PO Q8H PRN tablet PRN Reason: Pain Moderate (4-7) Acetaminophen Tab [Tylenol Tab] 325 mg PO Q6H PRN tablet PRN Reason: Headache Or Rest Discontinued Ethinyl Estrad/Norges 0.03-0.3 [Lo Ovral 28] 1 tablet PO DAILY Ondansetron Tab [Zofran Tab] 4 mg PO Q4-6H PRN PRN Reason: Nausea/Vomiting - Follow Up or Referral Follow Up: Lowell Lewis MD [Physician] - 2 Weeks - Forms/Instructions Exam - Constitutional Vitals: Period Temp Pulse Resp BP Sys/Hi Pulse Ox Last 24 Hr 97.8 F-99.0 F 55-83 17-20 109-133/60-78 90-98 Discharge Results Procedures and tests throughout hospitalization: Pending Orders 05/09/17 08:37 BMP w/ Mg [Basic Metabolic Panel w/Mg] Stat Labs on day of discharge: Labs from last 24 hours 05/08/17 05/08/17 05/08/17 10:46 09:30 09:30 WBC 12.0 RBC 3.62 L Hgb 11.8 L D Hct 34.8 L MCV 96.1 MCH 33 MCHC 33.9 RDW 12.5 Plt Count 195 MPV 11.7 Neut % (Auto) 74.7 H Lymph % (Auto) 18.2 L Imperial % (Auto) 6.3 Eos % (Auto) 0.0 Baso % (Auto) 0.2 Neut # (Auto) 9.0 H Lymph # (Auto) 2.2 Imperial # (Auto) 0.8 Eos # (Auto) 0.0 Baso # (Auto) 0.0 Immature Gran % 0.6 Nucleated RBC % 0.0 Immature Gran # 0.07 Nucleated RBCs # 0.00 Sodium 140 Potassium 3.7 Chloride 105 Carbon Dioxide 27 Anion Gap 11.7 BUN 18 Creatinine 0.60 GFR Calculation 103 BUN/Creatinine Ratio 30.00 H Glucose 94 Calculated Osmolality 280.4 Calcium 8.4 L Magnesium 2.3 HIV 1&2 Antigen & Ab Nonreactive DS: Provider Date of admission: 05/07/17 18:40 Primary care physician: . No PCP Attending physician on admission: Carlos Beaulieu Consults: 05/07/17 18:43 Consult to Physician [CONS] Routine Comment: Please help manage pt medically Consulting Provider: Omero Crum Discharging clinician: Carlos Beaulieu Expected date of discharge: 05/09/17
[2017-05-09 10:00] LABS: Calcium 8.9 MG/DL (8.5-10.1); Magnesium 1.9 MG/DL (1.8-2.4); Osmolality,Calculated 265.2 MOS/KG (273-304); Potassium 4.1 MMOL/L (3.5-5.1)
--- NOTE | 2017-05-09 12:10 | Hospitalist Progress Note ---
Assessment and Plan (1) Hypokalemia Status: Acute Assessment and plan: Resolved (2) Abdominal pain Status: Acute Assessment and plan: Resolved. Internal medicine will sign off. Qualifiers: Abdominal location: lower abdomen, unspecified Qualified Code(s): R10.30 - Lower abdominal pain, unspecified Hospitalist: Subjective Interval history: Patient is seen interviewed and examined and chart has been reviewed. Patient was seen in consultation of the BUN yesterday because of hypokalemia denies any more nausea vomiting or abdominal pain at this time. Patient is thought of endometriosis given Depo-Provera yesterday Exam - Constitutional Vitals: Period Temp Pulse Resp BP Sys/Hi Pulse Ox Last 24 Hr 97.8 F-99.0 F 55-83 17-20 109-133/60-78 90-98 General appearance: normal weight, no acute distress - Head Head exam: Present: normocephalic, atraumatic - Eye Eye exam: Present: EOMI Pupils: Present: SARA - ENT ENT exam: Present: normal exam - Neck Neck exam: Present: normal inspection - Respiratory Respiratory exam: Present: clear to auscultation bilaterally - Cardiovascular Cardiovascular exam: Present: regular rate and rhythm - GI/Abdominal GI/Abdominal exam: Present: normal bowel sounds, soft - Extremities Exam Extremities exam: Present: full ROM - Back Exam Back exam: Present: normal inspection - Neurological Exam Neurological exam: Present: alert, oriented X3, CN II-XII intact - Psychiatric Psychiatric exam: Present: normal affect, normal mood - Skin Skin exam: Present: normal color, warm, dry Results - Labs CBC & BMP: 05/08/17 09:30 05/09/17 08:53 Lab Results: I have reviewed the past 24 hour labs Specialty Discharge - Follow Up or Referrals Follow up with: Lowell Lewis MD [Physician] - 05/23/17 10:15 am
== END 2017-05-09 10:30 | disposition home or self-care (01) | DRG 760 ==
LOC: N.ED 15:33 → N.EDINP 19:39 → N.2E 19:44
PROVIDERS: ADMIT Specialist; ATTEND Specialist